=== PATIENT | male | born 1940 | race Caucasian/White ===

== ENCOUNTER 2024-08-21 17:37 | Emergency (ER) | payer MEDICARE, SELFPAY ==
[2024-08-21 17:37] VITALS: BP 124/47; PULSE 98; RESP 16; TEMP 36.4; O2SAT 95
--- OUTSIDE RECORDS SUMMARY | 2024-08-21 18:10 | XMS_ITS | Clinical Summary ---
Author Organization [facility] Address [address] [place] [address] Care Team Providers Care Machine Brusher Name Role Phone Unavailable Primary Care Provider Unavailabl e Social History Tobacco Use Types Packs/Day Years Used Date Smoking Tobacco: Never Assessed Sex and Gender Information Value Date Recorded Sex Assigned at Not on file Legal Sex Male 11:47 AM CDT Gender Identity Not on file Sexual Orientation Not on file Plan of Treatment Health Maintenance Due Date Last Done Comments RSV VACCINE (60+ or ) (1 - 1-dose 75+ series) 2017 INFLUENZA VACCINE (#1) 2023 01/04/2022 DTAP/TDAP/TD VACCINES (3 - Td or Tdap) 12/10/2028, 10/28/2018 ZOSTER VACCINE Completed 06/02/2020, 01/27/2020 PNEUMOCOCCAL VACCINE 50+ YEARS Completed 01/17/2021 , 03/04/2017
--- OUTSIDE RECORDS SUMMARY | 2024-08-21 18:10 | XMS_ITS | Continuity of Care Document ---
Author Organization [facility] Address [address] [place] [address] Phone Care Team Providers Care Major Appliance Assembly Supervisor Name Role Phone Donny MARTINEZ, Gianluca Unavailable Unavailable Allergies, Adverse Reactions, Alerts Substance Reaction Status Criticality No Known Drug Allergies Other Active No I nformation Medications Medication Instructions Dosage Effective Dates (start - stop) Status Comments SIMVASTATIN 20 MG TABLET 1 QHS - Active SINGULAIR 10 MG TABLET 1 QPM - Active ALBUTEROL SULF HFA 90 MCG INH 2 QID - Active ADVAIR 250-50 DISKUS 1 BID - Activ e Rinse mouth after use Advance Directives Directive Yes / No Effective Date File Name No Information Encounters Encounter Description Practice Location Reason(s) For Visit Diagnoses Date Provider Providers Copied on Encounter [facility], [address], [place], [place], [id number], tel:[phone] Josie No Information 4 Donny Hough. [address] [place], [place], [id number], [place]. tel:[phone] [facility], [address], [place], [place], [address], [place] tel:[phone] [facility] No Information 1 Rick Altamirano [address], [place], [place], [id number]. tel:[phone] [facility], [address], [place], [place], [address], tel:[phone] [facility] IM AORTIC ATHEROSCLEROSIS [address]. [address] , [place], [place], [address]. tel:[phone] [facility], [address], [place], [place], [address], tel:[phone] [facility] IM CHR AIRWAY OBSTRUCT NEC Apr-2 8-201 0 [address]. [address] , [place], [place], [address]. tel:[phone] [facility], [address], [place], [place], [address], tel:[phone] [facility] IM CRAMP IN LIMBVARIC VEIN LEG,COMP NEC Nov-1 7-200 9 [address]. [address] , [place], [place], [address]. tel:[phone] [facility], [address], [place], [place], [address], tel:[phone] [facility] IM SCRN MALIG NEOP-PROSTATE Oct-3 1-200 8 [address]. [address] , [place], [place], [address]. tel:[phone] [facility], [address], [place], [place], [address], tel:[phone] [facility] IM SCREEN LIPOID DISORDERS Oct-0 3-200 8 [address] , [place], [place], [address]. tel:[phone] [facility], [address], [place], [place], [address], tel:[phone] [facility] IM ASTHMA NOSHERPES ZOSTER NOSSCREEN MAL NEOP-RECTUM Sep-2 5-200 8 [address]. [address] , [place], [place], [address]. tel:[phone] Family History Family Member Type Diagnosis Age At Onset No Information Payers Payer name Insurance type Covered green party ID Authoriza tion(s) No Information Social History Type Description Quantity Date Captured Comments Sex Male Smoking Status No Information Chief Complaint And Reason For Visit No Information Reason For Referral Reason For Referral No Information History Of Present Illness Encounter Date Complaint History Of Prese nt Illness No Information Functional Status Date Functional Assessmen t No Information Instructions Date Instruction Additional Infor mation No Information Assessments Type Assessment Date No Information Patient Care Teams Name Effective Dates (start - stop) Status Members No Information
[2024-08-21] MEDS: AMOXICILLIN/CLAVULANATE K 875-125 MG TAB 1 TABLET PO (18:25)
[2024-08-21] MEDS: ACYCLOVIR 200 MG CAPSULE 400 MG PO (18:25)
--- NOTE | 2024-08-21 18:27 | ED_ITS ---
HPI - Skin/Abscess/Foreign Bdy General Chief complaint: Skin/Abscess/Foreign Body Stated complaint: wound check right forehead Source: patient and family Mode of arrival: ambulatory Limitations: no limitations History of Present Illness HPI narrative: this is a an 84-year-old male that presents with a crusted rash over the right forehead with some few vesicles with currently no drainage no erythema it is tender with no fever chills there is no visual is disturbance eyes not affected on the right with no nausea vomiting no chest pain no shortness of breath. complaint: rash Onset (ago): day(s) Location: head and face Severity: mild Quality: burning and aching Pain Consistency: constant Related Data Allergies Allergy/AdvReac Type Severity Reaction Status Date / Time No Known Allergies Allergy Verified 08/21/24 17:49 Review of Systems Review of Systems: All systems reviewed & are unremarkable except as noted in HPI and below PMFSH Past Medical History Medical History Patient denies medical problems Exam Const: General: healthy appearing and no acute distress Nutritional Appearance: well nourished and obese Orientation/consciousness: patient oriented x3 Limitations: no limitations HENMT: Head: normal to inspection Eyes: Conjunctivae: conjunctivae normal Pupils: Equal, round and reactive pupils present EOM: EOMs intact bilaterally Neck: Neck: normal visual inspection, no lymphadenopathy and no meningeal signs Chest: Chest palpation & inspection: normal inspection of the chest Resp: Effort & Inspection: normal respiratory effort Auscultation: clear to auscultation bilaterally Cardio: Rate: regular rate Rhythm: regular rhythm GI: Auscultation: normal bowel sounds : General: Yes bladder normal to palpation Skin: Other: crusted rash with a few distinct vesicles right forehead Neuro: General: patient oriented x3, moves all extremities, no meningeal signs and no focal motor deficits Course Course Emergency Course: shingles located on the right forehead eye is not affected, patient received acyclovir 400mg and Augmentin. For secondary bacterial infection. Vital Signs Vital signs: Vital Signs Temperature 36.4 C L 08/21/24 17:37 Pulse Rate 98 08/21/24 17:37 Respiratory Rate 16 08/21/24 17:37 Blood Pressure 124/47 L 08/21/24 17:37 Pulse Oximetry 95 08/21/24 17:37 Oxygen Delivery Room Air 08/21/24 17:37 Temperature 36.4 C L 08/21/24 17:37 Pulse Rate 98 08/21/24 17:37 Respiratory Rate 16 08/21/24 17:37 Blood Pressure 124/47 L 08/21/24 17:37 Pulse Oximetry 95 08/21/24 17:37 Oxygen Delivery Room Air 08/21/24 17:37 Critical Care Time Critical Care Time Critical Care Time: No Discharge Plan Discharge Clinical Impression: Herpes zoster Qualifiers: Herpes zoster complications: without complications Qualified Code(s): B02.9 - Zoster without complications Patient Disposition: Home Condition: Stable Instructions: Antibiotic Form, Shingles (ED) Additional Instructions: Advised patient to take medication as prescribed follow with his primary care within the next 2 to 5 days for further evaluation and treatment. Patient Language: Sammarinese Prescriptions: New acyclovir 400 mg tablet 400 mg PO QID 7 Days Qty: 28 0RF amoxicillin-pot clavulanate [Augmentin] 500-125 mg tablet 1 tablet PO TID Qty: 30 0RF Follow-up/Referrals: Anila,Ori [Other] Time of Disposition: 18:31
[2024-08-21 18:42] VITALS: BP 116/71; PULSE 96; RESP 20; O2SAT 98
== END 2024-08-21 18:42 | disposition home or self-care (01) ==
PROVIDERS: Emergency Provider Emergency Medicine
DX: B02.9 Zoster without complications (principal)
CPT/HCPCS: 99283; A9270